=== PATIENT | male | born 1985 | race Caucasian/White ===

== ENCOUNTER 2019-09-11 12:29 | Emergency (ER) | payer BC ==
[~2019-09-11] VITALS: Ht 175.3 cm; Wt 77.3 kg
[2019-09-11 12:31] VITALS: TEMP 98.1
[2019-09-11 12:46] VITALS: BP 132/88; PULSE 83
== END 2019-09-11 13:08 | disposition home or self-care (01) ==
LOC: COL.ER 12:29
DX: Z20.828 Contact with and (suspected) exposure to other viral communicable diseases (principal)